=== PATIENT | female | born 2000 | race Two or more races ===

== ENCOUNTER 2021-07-12 09:41 | Emergency (ER) | payer OTHER ==
[~2021-07-12] VITALS: Ht 162.6 cm; Wt 72.6 kg
[2021-07-12] MEDS ORDERED: AMOX-CLAV 875-1 EAC1 PO (12:58)
[2021-07-12] MEDS ORDERED: KETO10TA2 PO (12:58)
== END 2021-07-12 13:28 ==
LOC: ER 09:41
DX: S71.012A Laceration without foreign body, left hip, initial encounter (principal); X58.XXXA Exposure to other specified factors, initial encounter; Y93.39 Activity, other involving climbing, rappelling and jumping off; Y92.9 Unspecified place or not applicable; Y99.9 Unspecified external cause status